=== PATIENT | female | born 1980 | race Caucasian/White ===

== ENCOUNTER → 2020-06-24 10:11 | Outpatient (CLI) | payer OTHER, SELFPAY | PROVIDERS: PCP Family Medicine; Visit Provider Family Medicine | DX: Z20.822 Contact with and (suspected) exposure to COVID-19 (principal) | CPT/HCPCS: 87635; U0005; U0002; U0003 ==

== ENCOUNTER → 2020-08-10 11:11 | Outpatient (CLI) | payer OTHER, SELFPAY ==
--- NOTE | 2020-08-10 11:14 | BI_ITS ---
MAMMOGRAPHY - BILATERAL SCREENING REASON FOR EXAM: Female, 40 years old. Routine annual screening examination. PERTINENT HISTORY: Grandmother with breast cancer. TECHNIQUE: Digital bilateral breast tarik (3D mammographic acquisition) in the CC and MLO projections. 2-D mediolateral oblique (MLO) and craniocaudad (CC) views of both breasts were obtained. CAD: Full Field Digital Mammography with Computer Added Detection was performed. COMPARISON: Comparison is made with prior abdomen examination dated 10/12/2016. FINDINGS: Breast Composition: The breasts are heterogeneously dense, which may obscure small masses. There are no dominant masses or suspicious calcifications. Stable benign appearing lateral axillary lymph nodes. No other significant abnormalities are identified. There has been no significant change since the prior study. BI/SCRN MAMM (CAD)W/TARIK BILAT IMPRESSION: Stable bilateral screening mammogram. Yearly follow-up mammogram recommended. (A) ASSESSMENT CATEGORY: BIRADS Category 2: Benign. A letter regarding these results will be sent to the patient by the facility within 30 days. Approximately 10% of breast cancers are not detected by mammography. A normal mammogram should not delay biopsy of a clinically suspicious abnormality. [id number] Electronically Signed: Lawrence Goetz MD at 15:51 EST , Service support ,
== END ==
PROVIDERS: PCP Family Medicine; Referring Provider Family Medicine; Visit Provider Family Medicine
DX: Z12.31 Encounter for screening mammogram for malignant neoplasm of breast (principal)
CPT/HCPCS: 77063; 77067

== ENCOUNTER → 2020-11-22 14:46 | Outpatient (CLI) | payer OTHER, SELFPAY ==
--- NOTE | 2020-11-22 14:50 | RAD_ITS ---
STUDY: X-RAY - LUMBOSACRAL SPINE REASON FOR EXAM: Female, 40 years old. LUMBAR BACK PAIN,RADICULOPATHY TECHNIQUE: 5 view(s) of the lumbosacral spine were obtained including oblique views. COMPARISON: None FINDINGS: Normal lumbar lordosis. There is a mild dextroscoliosis of the lumbar spine. There is normal alignment of the vertebrae. Normal vertebral bodies and endplates. Normal disc space heights. Normal bilateral sacral ala, sacroiliac joints, and visualized sacrum. Normal visualized soft tissue structures. RAD/L/S Spine Bending Flex/Ext IMPRESSION: Mild degree of dextroscoliosis. Electronically Signed: Lawrence Goetz MD at 15:32 EDT , Service support ,
== END ==
PROVIDERS: PCP Family Medicine; Referring Provider Family Medicine; Visit Provider Family Medicine
DX: M54.16 Radiculopathy, lumbar region (principal)
CPT/HCPCS: 72120

== ENCOUNTER 2021-11-02 | Emergency (ER) | payer OTHER, SELFPAY ==
[2021-11-02 00:01] VITALS: BP 141/86; PULSE 91; RESP 18; TEMP 36.5; O2SAT 99; BMI 30.2
--- NOTE | 2021-11-02 00:13 | CT_ITS ---
STUDY: CTA CHEST REASON FOR EXAM: Female, 41 years old. covid + pulmonary embolism RADIATION DOSAGE (If Supplied By Facility): CTDIvol = ( 11.09 ) mGy, DLP = ( 420.28 ) mGycm TECHNIQUE: The examination was performed with the intravenous administration of IV 75mL Isovue-370. Post-processing of the angiographic images was performed, with multiplanar reformation and 3D reconstruction. Individualized dose optimization techniques were used for this CT. COMPARISON: None. FINDINGS: Normal enhancement of the main pulmonary artery and right and left pulmonary arteries. Normal enhancement of the bilateral peripheral pulmonary arteries. There is no demonstrated pulmonary embolism. Normal thoracic aorta and visualized great vessels. There is no demonstrated aortic dissection. Normal heart and pericardium. Normal mediastinum. Normal hilar regions. Normal visualized trachea and bronchi. The lungs are well expanded. Normal pulmonary parenchyma. Normal pleura. Normal chest wall structures. Normal osseous structures. Normal visualized upper abdomen. CT/CTA Chest W/WO Contrast IMPRESSION: Normal CTA chest examination, without a demonstrated pulmonary embolism or arterial dissection. Electronically Signed: Agustín Rangel MD at 2:00 EDT ,
--- NOTE | 2021-11-02 00:13 | EKG12_ITS ---
Test Reason : CP Blood Pressure : / mmHG Vent. Rate : 076 BPM Atrial Rate : 076 BPM P-R Int : 148 ms QRS Dur : 092 ms QT Int : 380 ms P-R-T Axes : 058 020 033 degrees QTc Int : 427 ms Normal sinus rhythm Normal ECG Confirmed by YESSY LOCKWOOD, HUGO ([id number]), assistant film editor JOB CASTANEDA ([id number]) on 11/04/2021 10:46:32 A M Referred By: Confirmed By:MINOO KRISHNAMURTHY MD
--- NOTE | 2021-11-02 00:14 | EDS_ITS ---
HPI History of Present Illness Chief Complaint: Chest Pain Informant: patient Narrative Narrative: 41-year-old female presenting to the emergency department for the evaluation of chest pain. Patient states that she is COVID-positive. She has not really felt short of breath but has been having some discomfort in the epigastrium. Is significantly worse tonight. She has been taking Nexium and took Pepcid today. She tried some Pepto-Bismol. Did not necessarily get worse with eating. She states that she thought perhaps some costochondritis so she took some ibuprofen. But she notes that the chest wall was not tender. No significant coughing. Temperatures have been low-grade. She has been able to stay hydrated no vomiting or diarrhea. [facility] Medical History Anxiety GERD (gastroesophageal reflux disease) Home Medications MAGIC MOUTH WASH (BMX) 5 ml PO Q4H PRN PRN #180 ml 11/02/21 [Rx Last Taken Unknown] Allergy/AdvReac Type Severity Reaction Status Date / Time No Known Allergies Allergy Verified 11/02/21 00:09 Social History (Updated 11/02/21 @ 00:[address] Ben Lopes DO) Smoking Status: Never smoker substance use type: does not use ROS ROS ED Constitutional Constitutional ED: Reports fever(s); Denies chills or weight loss Eyes Eyes: Denies change in vision or diplopia ENT ENT ED: Denies ear pain, rhinorrhea or sore throat Cardiovascular Cardiovascular: Reports chest pain; Denies orthopnea, palpitations or racing heartbeat Respiratory/Chest Respiratory/Chest: Denies cough, dyspnea or orthopnea Gastrointestinal Gastrointestinal: Denies abdominal pain, diarrhea, nausea or vomiting Genitourinary Genitourinary ED: Denies dysuria, hematuria or urinary frequency Musculoskeletal Musculoskeletal: Reports back pain and myalgias; Denies arthralgias Integumentary Denies abscess or rash Neurologic Neurologic: Denies headache(s) or weakness Psychiatric Psychiatric: Denies anxiety, depression, suicidal ideation or suicidal thoughts Endocrine Endocrinology: Denies polydipsia, polyphagia or polyuria Allergic/Immunologic Allergic/Immunologic ED: Denies mouth swelling, tongue swelling or urticaria EXAM Physical Exam Const Vital Signs: 11/02/21 00:01 11/02/21 00:08 11/02/21 00:58 Temperature 97.7 F L Temperature Source Oral Pulse Rate 91 97 Respiratory Rate 18 12 Respiratory Effort Normal Non-Labored Respiratory Pattern Normal Blood Pressure 141/86 H 122/73 H Blood Pressure Mean 104 89 Pulse Ox 99 99 Oxygen Delivery Method Room Air Room Air Positive well nourished and well developed General Appearance ED: well developed HEENT Reports normocephalic, head/scalp atraumatic, TM's clear and moist mucous membranes Negative for trauma Tympanic Membrane ED: Yes TM's clear Eyes PERRL and EOMs intact bilaterally Neck no lymphadenopathy, supple and no JVD Resp normal respiratory effort and clear to auscultation bilaterally Cardio regular rate and no murmurs Rate: tachycardic GI normal to inspection, nondistended, normoactive bowel sounds and non-tender Palpation: soft Back/Spine no CVA tenderness and normal ROM Extremity normal to inspection General Extremety ED: Negative for edema General Extremity: Negative for edema Neuro oriented x3 and CN's II-XII intact bilaterally Sensorium / Orientation: alert Motor Exam: strength 5/5 throughout Psych mental status grossly normal Mood & Affect: Negative for depressed or tearful Skin no rashes or lesions noted and no wounds MDM MDM MDM Narrative Medical decision making narrative: EKG is a normal sinus rhythm troponin is normal. CTA of the chest demonstrates no pneumonia or pulmonary embolism. Patient did get some partial relief of her symptoms with a GI cocktail. I think at this point it is most likely GI related. Patient is comfortable being discharged. Continue her antacids and I will write for Magic mouthwash. Lab Data Attestation: I reviewed the patient's lab results. Labs: Laboratory Results - last 24 hr 11/02/21 11/02/21 00:10 00:10 WBC 10.9 RBC 4.49 Hgb 12.9 Hct 40.2 MCV 89.5 MCH 28.7 MCHC 32.1 RDW Std Deviation 42.0 RDW Coeff of Casey 12.8 Plt Count 332 MPV 9.9 Immature Gran % (Auto) 0.400 Neut % (Auto) 65.8 Lymph % (Auto) 21.0 [place] % (Auto) 10.9 H Eos % (Auto) 1.5 Baso % (Auto) 0.4 Absolute Neuts (auto) 7.2 Absolute Lymphs (auto) 2.29 Nucleated RBC % 0 Sodium 137 Potassium 3.4 L Chloride 100 Carbon Dioxide 30.0 Anion Gap 7 BUN 8 Creatinine 0.82 Estim Creat Clear Calc 79.60 Est GFR (MDRD) Af Amer 97 Est GFR (MDRD) Non-Af 81 BUN/Creatinine Ratio 9.7 L Glucose 127 H Calcium 9.6 Troponin I High Sens < 3 L EKG Initial EKG: Attestation: I personally reviewed and interpreted this EKG as follows: Comments: Normal sinus rhythm with a ventricular rate of 76 bpm Discharge Plan Triage Chief Complaint: Chest Pain ED Provider: Ben Lopes Dx/Rx/DC Orders Clinical Impression: COVID-19, Chest pain Instructions: Coronavirus Disease 2019 (COVID-19): Caring for Yourself or Others Prescriptions: New MAGIC MOUTH WASH (BMX) 180 mL suspension 5 ml PO Q4H PRN PRN (Reason: pain) Qty: 180 RF: 0 Primary Care Provider: Jenny Garcia Referrals: Jenny Garcia DO [Primary Care Provider] - As Needed Disposition Disposition: Home, Self Care
[2021-11-02 00:31] LABS: Absolute Lymphocyte Count 2.29 X10^3/uL (0.83-4.51); Absolute Neutrophil Count 7.2 X10^3/uL (2.0-7.7); Basophil# 0.04 X10^3/uL; Basophil% 0.4 % (0-1); Eosinophil# 0.16 X10^3/uL; Eosinophils% 1.5 % (0-5); Hematocrit 40.2 % (37-47); Hemoglobin 12.9 g/dL (12.0-15.0); Lymphocyte # 2.29 X10^3/ul (0.83-4.51); Mean Corp Hgb Conc 32.1 g/dL (32-36); Mean Corpuscular Hgb 28.7 pg (27.0-32.0); Mean Corpuscular Volume 89.5 fL (81-99); Mean Platelet Vol. 9.9 fl (6.2-12.0); Monocyte# 1.19 X10^3/uL; Monocyte% 10.9 % (0-10); NRBC Flagged by Analyzer 0 % (0-5); Neutrophil # 7.18 X10^3/uL (2.7-7.7); Neutrophil % 65.8 % (47-70); Platelet Count 332 K/mm3 (150-450); RBC Distribution Width CV 12.8 % (11.6-14.6); Red Blood Count 4.49 M/mm3 (4.2-5.4); White Blood Count 10.9 K/mm3 (4.4-11.0)
[2021-11-02] MEDS: Mag Hydrox/Al Hydrox/Simeth 30 ML UDC PO ×2 (00:42→02:41)
[2021-11-02 00:45] LABS: Anion Gap 7 (5-15); BUN 8 mg/dL (7-18); BUN/Creat Ratio 9.7 RATIO (10-20); Calcium,Total 9.6 mg/dL (8.5-10.1); Chloride 100 mmol/L (98-107); Creatinine, Serum 0.82 mg/dL (0.55-1.02); EST Glomerular Filtration Rate 81 mL/min (>60); Est Glom Filt Rate - Afr Amer 97 mL/min (>60); Glucose 127 mg/dL (74-106); Potassium 3.4 mmol/L (3.5-5.1); Sodium Level 137 mmol/L (136-145); Troponin-I HS < 3 pg/mL (3.0-54.0)
[2021-11-02 00:58] VITALS: BP 122/73; PULSE 97; RESP 12; O2SAT 99
== END 2021-11-02 02:49 | disposition home or self-care (01) ==
PROVIDERS: Emergency Provider Emergency Medicine; PCP Family Medicine; Visit Provider Emergency Medicine
DX: U07.1 COVID-19 (principal)
CPT/HCPCS: 71275; 80048; 84484; 85025; 93005; 99284

== ENCOUNTER → 2021-11-29 | Outpatient (CLI) | payer OTHER, SELFPAY ==
--- NOTE | 2021-11-29 16:18 | BI_ITS ---
MAMMOGRAPHY - BILATERAL SCREENING REASON FOR EXAM: Female, 41 years old. Routine annual screening examination. PERTINENT HISTORY: Grandmother with breast cancer. TECHNIQUE: Digital bilateral breast tarik (3D mammographic acquisition) in the CC and MLO projections. 2-D mediolateral oblique (MLO) and craniocaudad (CC) views of both breasts were obtained. CAD: Full Field Digital Mammography with Computer Added Detection was performed. COMPARISON: Comparison is made with prior study dated 08/10/2020. FINDINGS: Breast Composition: The breasts are heterogeneously dense, which may obscure small masses. There are no dominant masses or suspicious calcifications. No other significant abnormalities are identified. There has been no significant change since the prior study. BI/SCRN MAMM (CAD)W/TARIK BILAT IMPRESSION: Stable bilateral screening mammogram. Yearly follow-up mammogram recommended. (A) ASSESSMENT CATEGORY: BIRADS Category 1: Negative. A letter regarding these results will be sent to the patient by the facility within 30 days. Approximately 10% of breast cancers are not detected by mammography. A normal mammogram should not delay biopsy of a clinically suspicious abnormality. [id number] Electronically Signed: Lawrence Goetz MD at 8:09 EDT ,
== END | disposition home or self-care (01) ==
LOC: OPBI 16:16
PROVIDERS: PCP Family Medicine; Referring Provider Family Medicine; Visit Provider Family Medicine
DX: Z12.31 Encounter for screening mammogram for malignant neoplasm of breast (principal)
CPT/HCPCS: 77063; 77067

== ENCOUNTER 2022-03-07 02:46 | Observation (INO) | payer OTHER, SELFPAY ==
[2022-03-07] VITALS (13 sets, daily range): BP systolic 92–145; BP diastolic 53–94; PULSE 59–80; RESP 15–16; TEMP 36.4–37.1; O2SAT 88–98; BMI 30.3; BMI 30.2
--- NOTE | 2022-03-07 02:59 | EDS_ITS ---
HPI <Dr. Socrates Govea MD - Last Filed: 03/07/22 23:02> HPI - GI History of Present Illness Chief Complaint: Abd Pain Informant: patient Narrative Narrative: Patient presents with epigastric pain. She states she just was not feeling well earlier today. She called off work which is very abnormal. She then started to have some epigastric pain at approximately 5 PM. Somewhat burning. Not having chest pain or dyspnea. She has had some nausea but she thinks that is more likely due to to the pain itself. She has had a history of some gastritis. She is on Nexium once a day and is still taking it. She has tried Pepto-Bismol and Magic mouthwash. And is just not helping her symptoms. The pain is epigastric and not right or left upper quadrant. Its not lower abdomen. It does not go through to the back. She has never had biliary disease but does have a family history of biliary problems. She rarely has alcohol. Nothing seems to have helped this. No fever. Patient did have prior hysterectomy but no cholecystectomy. PFSH <Dr. Socrates Govea MD - Last Filed: 03/07/22 23:02> [facility] Medical History (Updated 03/07/22 @ 09:43 by Noni De Leon) Anxiety Factor 5 Leiden mutation, heterozygous GERD (gastroesophageal reflux disease) Home Medications MAGIC MOUTH WASH (BMX) 180 mL suspension 5 ml PO Q4H PRN PRN pain #180 mL 11/02/21 [Rx Last Taken Unknown] cyclobenzaprine 10 mg tablet 10 mg PO TID PRN Spasms 03/07/22 [History Last Taken Unknown] esomeprazole magnesium 40 mg capsule,delayed release (Nexium) 40 mg PO DAILY 03/07/22 [History Last Taken 03/06/22] fluoxetine 40 mg capsule (Prozac) 40 mg PO DAILY 03/07/22 [History Last Taken 0 03/06/22] Allergy/AdvReac Type Severity Reaction Status Date / Time No Known Allergies Allergy Verified 03/07/22 02:52 Surgical History (Updated 03/07/22 @ 09:48 by Noni De Leon) History of hysterectomy Social History Smoking Status: Never smoker substance use type: does not use ROS <Dr. Socrates Govea MD - Last Filed: 03/07/22 23:02> ROS ED Constitutional Constitutional ED: Denies fever(s) ENT ENT ED: Reports other Details: Acid taste in throat from episodes of vomiting. Cardiovascular Cardiovascular: Denies chest pain or palpitations Respiratory/Chest Respiratory/Chest: Denies cough or dyspnea Gastrointestinal Gastrointestinal: Reports abdominal pain, nausea and vomiting Musculoskeletal Musculoskeletal: Denies back pain Integumentary Denies rash Endocrine Endocrinology: Reports other Details: No diabetic history. Hematologic/Lymphatic Hematologic/Lymphatic: Denies easy bleeding or easy bruising Allergic/Immunologic Allergic/Immunologic ED: Denies urticaria EXAM <Dr. Socrates Govea MD - Last Filed: 03/07/22 23:02> Physical Exam Const Vital Signs: 03/07/22 02:47 03/07/22 07:58 Temperature 98.2 F 97.9 F Temperature Source Temporal Temporal Pulse Rate 80 73 Respiratory Rate 16 16 Blood Pressure 145/94 H 117/76 Blood Pressure Mean 111 89 Pulse Ox 98 96 Oxygen Delivery Method Room Air Room Air Positive well nourished and well developed General Appearance ED: well developed HEENT atraumatic Eyes General Eye ED: Negative for scleral icterus Neck no JVD Resp normal respiratory effort and clear to auscultation bilaterally Resp Narrative: No pain with deep breath. Auscultation: Negative for rales, rhonchi or wheezes Cardio regular rate, regular rhythm and no murmurs GI non-distended GI Narrative: Abdomen is soft. Bowel sounds are normal. She has epigastric tenderness is very reproducible. But if she really does not have any left or right upper quadrant tenderness. No lower abdominal tenderness. Palpation: soft and tender Back/Spine no CVA tenderness Extremity Extremity Narrative: No asymmetry. General Extremety ED: Negative for edema or tenderness General Extremity: Negative for edema Neuro Sensorium / Orientation: alert Psych mental status grossly normal Skin General Skin Exam: Negative for jaundice <Dr. Carline Delaney DO - Last Filed: 03/07/22 08:07> Physical Exam Const Vital Signs: 03/07/22 02:47 03/07/22 07:58 Temperature 98.2 F 97.9 F Temperature Source Temporal Temporal Pulse Rate 80 73 Respiratory Rate 16 16 Blood Pressure 145/94 H 117/76 Blood Pressure Mean 111 89 Pulse Ox 98 96 Oxygen Delivery Method Room Air Room Air MDM <Dr. Socrates Govea MD - Last Filed: 03/07/22 23:02> [facility] MDM Narrative Medical decision making narrative: Patient was rechecked. She is still having symptoms but it is improving. We discussed adding Carafate which we will try here. Her electrolytes, liver function test, lipase are all relatively normal. Glucose has mild elevation at 125. Her CBC shows normal hemoglobin and platelet. But her white count is quite high at 18.7. This add some concern. This certainly could be due to pain and demargination but infectious etiology, perforation etc. are also a concern. Since she is having a marked increase in her epigastric pain despite taking medicines for gastritis and has a high white count we will look further with a CT scan. Patient will be rechecked again. Patient CT showed some possible gallbladder wall thickening. Patient was rechecked. She is starting to feel little bit worse again. We will give her so me morphine and Phenergan to help because the nausea is worsened also. With her symptoms, worsening and elevated white count I think we need to look further. I cannot get ultrasound now but they will be in the morning. We will try to keep her comfortable until that time to get further studies. Ultrasound showed 2 quite large gallstones but no significant signs of acute cholecystitis. I am wondering if she is having a ball-valve type occurrence with the stones. Patient does look genuinely uncomfortable. I did discuss the case with surgery, Dr. Mendoza who is down seeing the patient now. Lab Data Attestation: I reviewed the patient's lab results. Labs: Laboratory Results - last 24 hr 03/07/22 03/07/22 02:52 02:52 WBC 18.7 H RBC 4.47 Hgb 12.7 Hct 40.1 MCV 89.7 MCH 28.4 MCHC 31.7 L RDW Std Deviation 41.9 RDW Coeff of Casey 12.7 Plt Count 418 MPV 9.8 Immature Gran % (Auto) 0.500 Neut % (Auto) 75.7 H Lymph % (Auto) 16.2 L [place] % (Auto) 6.3 Eos % (Auto) 1.0 Baso % (Auto) 0.3 Absolute Neuts (auto) 14.2 H Absolute Lymphs (auto) 3.03 Nucleated RBC % 0 Sodium 137 Potassium 3.8 Chloride 103 Carbon Dioxide 27.0 Anion Gap 7 BUN 12 Creatinine 0.92 Estim Creat Clear Calc 70.95 Est GFR (MDRD) Af Amer 86 Est GFR (MDRD) Non-Af 71 BUN/Creatinine Ratio 13.1 Glucose 125 H Calcium 9.1 Total Bilirubin 0.20 AST 23 ALT 22 Alkaline Phosphatase 64 Troponin I High Sens 4 Total Protein 7.6 Albumin 3.8 Globulin 3.8 Albumin/Globulin Ratio 1.0 Lipase 297 Radiography Diagnostic Testing: Clinical Impression(s) from Imaging Studies Abdomen/Pelvis CT 03/07/22 03:45 IMPRESSION: undefined Gallbladder Ultrasound 03/07/22 04:50 IMPRESSION: undefined EKG Initial EKG: Comments: EKG done for epigastric pain read by me shows normal sinus rhythm with overall rate of 69. No ectopy noted. No acute ST elevation or depression. No preexcitation. IL interval, QRS duration and QTc are normal. These indices as well as the overall appearance of the EKG is similar to 02 Nov 2021. <Dr. Carline Delaney, DO - Last Filed: 03/07/22 08:07> [facility] Narrative Medical decision making narrative: Patient was rechecked. She is still having symptoms but it is improving. We d iscussed adding Carafate which we will try here. Her electrolytes, liver function test, lipase are all relatively normal. Glucose has mild elevation at 125. Her CBC shows normal hemoglobin and platelet. But her white count is quite high at 18.7. This add some concern. This certainly could be due to pain and demargination but infectious etiology, perforation etc. are also a concern. Since she is having a marked increase in her epigastric pain despite taking medicines for gastritis and has a high white count we will look further with a CT scan. Patient will be rechecked again. Patient CT showed some possible gallbladder wall thickening. Patient was rechecked. She is starting to feel little bit worse again. We will give her some morphine and Phenergan to help because the nausea is worsened also. With her symptoms, worsening and elevated white count I think we need to look further. I cannot get ultrasound now but they will be in the morning. We will try to keep her comfortable until that time to get further studies. Lab Data Labs: Laboratory Results - last 24 hr 03/07/22 03/07/22 02:52 02:52 WBC 18.7 H RBC 4.47 Hgb 12.7 Hct 40.1 MCV 89.7 MCH 28.4 MCHC 31.7 L RDW Std Deviation 41.9 RDW Coeff of Casey 12.7 Plt Count 418 MPV 9.8 Immature Gran % (Auto) 0.500 Neut % (Auto) 75.7 H Lymph % (Auto) 16.2 L [place] % (Auto) 6.3 Eos % (Auto) 1.0 Baso % (Auto) 0.3 Absolute Neuts (auto) 14.2 H Absolute Lymphs (auto) 3.03 Nucleated RBC % 0 Sodium 137 Potassium 3.8 Chloride 103 Carbon Dioxide 27.0 Anion Gap 7 BUN 12 Creatinine 0.92 Estim Creat Clear Calc 70.95 Est GFR (MDRD) Af Amer 86 Est GFR (MDRD) Non-Af 71 BUN/Creatinine Ratio 13.1 Glucose 125 H Calcium 9.1 Total Bilirubin 0.20 AST 23 ALT 22 Alkaline Phosphatase 64 Troponin I High Sens 4 Total Protein 7.6 Albumin 3.8 Globulin 3.8 Albumin/Globulin Ratio 1.0 Lipase 297 Radiography Diagnostic Testing: Clinical Impression(s) from Imaging Studies Abdomen/Pelvis CT 03/07/22 03:45 IMPRESSION: undefined Gallbladder Ultrasound 03/07/22 04:50 IMPRESSION: undefined Treatment and Re-Evaluation Narrative: Patient signed out to me pending surgical evaluation. Patient is admitted to surgical service for further definitive management. Discharge Plan Dx/Rx/DC Orders Clinical Impression: Symptomatic cholelithiasis, Leukocytosis Disposition Disposition: Acute Care [facility]
[2022-03-07 03:11] LABS: Absolute Lymphocyte Count 3.03 X10^3/uL (0.83-4.51); Absolute Neutrophil Count 14.2 X10^3/uL (2.0-7.7); Basophil# 0.06 X10^3/uL; Basophil% 0.3 % (0-1); Eosinophil# 0.18 X10^3/uL; Hematocrit 40.1 % (37-47); Hemoglobin 12.7 g/dL (12.0-15.0); Lymphocyte # 3.03 X10^3/ul (0.83-4.51); Lymphocyte % 16.2 % (19-41); Mean Corp Hgb Conc 31.7 g/dL (32-36); Mean Corpuscular Hgb 28.4 pg (27.0-32.0); Mean Corpuscular Volume 89.7 fL (81-99); Mean Platelet Vol. 9.8 fl (6.2-12.0); Monocyte# 1.18 X10^3/uL; Monocyte% 6.3 % (0-10); NRBC Flagged by Analyzer 0 % (0-5); Neutrophil # 14.18 X10^3/uL (2.7-7.7); Neutrophil % 75.7 % (47-70); Platelet Count 418 K/mm3 (150-450); RBC Distribution Width CV 12.7 % (11.6-14.6); RBC Distribution Width SD 41.9 fl (35.1-43.9); Red Blood Count 4.47 M/mm3 (4.2-5.4); White Blood Count 18.7 K/mm3 (4.4-11.0)
[2022-03-07] MEDS: Ondansetron 4 MG/2 ML Vial IV (03:11)
[2022-03-07] MEDS: Mag Hydrox/Al Hydrox/Simeth 30 ML UDC PO (03:11)
[2022-03-07 03:30] LABS: AST(SGOT) 23 U/L (15-37); Alanine Aminotransfer ALT/SGPT 22 U/L (13-56); Albumin, Serum 3.8 g/dL (3.2-5.0); Alkaline Phosphatase 64 U/L (45-117); Anion Gap 7 (5-15); BUN 12 mg/dL (7-18); BUN/Creat Ratio 13.1 RATIO (10-20); Calcium,Total 9.1 mg/dL (8.5-10.1); Chloride 103 mmol/L (98-107); Creatinine, Serum 0.92 mg/dL (0.55-1.02); EST Glomerular Filtration Rate 71 mL/min (>60); Est Glom Filt Rate - Afr Amer 86 mL/min (>60); Estimated Creatinine Clearance 70.95 ml/min; Globulin 3.8 g/dL (2.2-4.2); Glucose 125 mg/dL (74-106); Lipase 297 U/L (73-393); Potassium 3.8 mmol/L (3.5-5.1); Protein, Total 7.6 g/dL (6.4-8.2); Sodium Level 137 mmol/L (136-145); Troponin-I HS 4 pg/mL (3.0-54.0)
--- NOTE | 2022-03-07 03:45 | CT_ITS ---
EXAM: CT abdomen and pelvis with contrast. HISTORY: pain, primarily epigastric TECHNIQUE: CT Abdomen And Pelvis W/ Contrast Injection. A radiation dose optimization technique was used for this scan. COMPARISON: None. LIMITATIONS: None. LOWER CHEST: Normal. LIVER: Normal. GALLBLADDER: Possible mild wall thickening. No pericholecystic inflammatory change. BILE DUCTS: Normal. PANCREAS: Normal. SPLEEN: Normal. ADRENAL GLANDS: Normal. KIDNEYS/URETERS/BLADDER: Normal. AORTA: Normal caliber. BOWEL/MESENTERY: Normal. APPENDIX: Normal. PERITONEUM: Trace free pelvic fluid. REPRODUCTIVE ORGANS: Hysterectomy. 1.5 cm irregular follicle or partially collapsed cyst in the left ovary. BONES/SOFT TISSUES: No acute fracture. OTHER: None. CONCLUSION: Possible mild wall thickening of the gallbladder. If acute cholecystitis is a clinical concern, ultrasound is recommended. Electronically Signed: Rosendo Casanova MD at 4:41 EDT , CT/Abdomen/Pelvis W IV Cont ONLY IMPRESSION: undefined
[2022-03-07] MEDS: Sucralfate 1 GM Tablet PO (04:12)
--- NOTE | 2022-03-07 04:50 | US_ITS ---
EXAM: Ultrasound abdomen, RUQ. HISTORY: PAIN -- EPIGASTRIC PAIN X 1 DAY COMPARISON: None. LIMITATIONS: None. LIVER: Normal. GALLBLADDER Size: Normal. Stones/sludge: Two gallstones. The largest measures 2.4 cm. Wall thickness: Normal measuring 2 to 3 mm. Pericholecystic fluid: None. Sonographic [place] sign: Negative. EXTRAHEPATIC BILE DUCTS: The partially visualized common duct is normal in caliber measuring 4 mm. PANCREAS: Not well visualized. RIGHT KIDNEY: Normal. OTHER: None. CONCLUSION: Gallstones. No definitive evidence of acute cholecystitis. Electronically Signed: Rosendo Casanova MD at 7:06 EDT , US/Gallbladder IMPRESSION: undefined
[2022-03-07] MEDS: Morphine 4 MG/ML Syringe IV (05:10)
[2022-03-07] MEDS: proMETHazine 25 MG/ML Syringe 12.5 MG IM (05:11)
--- NOTE | 2022-03-07 08:10 | NURSING ---
MED SURG OBS RICHARD SYMPTOMATIC CHOLELITHIASIS
--- NOTE | 2022-03-07 09:19 | HP.PCM_ITS ---
[facility] - General General Date of Admission: 03/07/22 Date of Service: 03/07/22 Chief Complaint: Acute onset abdominal pain nausea and vomiting [facility] Narrative JAYESH DIAMOND, is a 41 F who presents with complaints of severe upper/epigastric abdominal pain that began yesterday and intensified towards the evening. 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 She attempted to take a number of umpu-tkj-lkubsbh agents including 2 Pepcid's, her prescribed Nexium, and Pepto-Bismol. However her discomfort persisted. With this discomfort she presented to [facility] ER. CT of the abdomen and pelvis was obtained that showed possible wall thickening of the gallbladder. Laboratories remarkable for leukocytosis (18.7) with left shift but normal CMP values. Given the CT findings a reflex right upper quadrant ultrasound was ordered for better characterization of the gallbladder. This study found the gallbladder wall to be of normal thickness, but identified 2 large gallstones?the largest of which measured 2.4 cm in diameter. Patient has a history of this discomfort. She states that in October following a COVID diagnosis she had severe abdominal pain and presented to the ER. At that time she was administered a GI cocktail and started on Nexium. She initially took Nexium twice daily but has been taking it once daily for last several months. She states that she has a history of reflux but this does not normally present as heartburn?more of a retrosternal discomfort. She has known history of a umbilical hernia for which she sought repair, but was told it could not be found. She denies any discomfort at the site today. Only PSH was total abdominal hysterectomy. [facility] Medical History Anxiety GERD (gastroesophageal reflux disease) Home Medications MAGIC MOUTH WASH (BMX) 180 mL suspension 5 ml PO Q4H PRN PRN pain #180 mL 11/02/21 [Rx Last Taken Unknown] esomeprazole magnesium 40 mg capsule,delayed release (Nexium) 40 mg PO DAILY 03/07/22 [History Last Taken Unknown] fluoxetine 40 mg capsule (Prozac) 40 mg PO DAILY 03/07/22 [History Last Taken Unknown] Allergy/AdvReac Type Severity Reaction Status Date / Time No Known Allergies Allergy Verified 03/07/22 02:52 Social History Smoking Status: Never smoker substance use type: does not use ROS Respiratory/Chest Respiratory/Chest: Denies cough Gastrointestinal Gastrointestinal: Reports abdominal pain, dyspepsia, nausea and vomiting Hematologic/Lymphatic Hematologic/Lymphatic: Denies easy bleeding Vital Signs Vital Signs Vital Signs: 03/07/22 02:47 03/07/22 07:58 03/07/22 08:19 Temperature 98.2 F 97.9 F 97.9 F Temperature Source Temporal Temporal Temporal Pulse Rate 80 73 73 Respiratory Rate 16 16 16 Blood Pressure 145/94 H 117/76 117/76 Blood Pressure Mean 111 89 89 Pulse Ox 98 96 96 Oxygen Delivery Method Room Air Room Air Room Air Weight Weight: 182 lb 5.156 oz Body Mass Index (BMI) 30.3 Physical Exam Const alert, oriented x3 and no apparent distress General Appearance: cooperative Resp normal respiratory effort GI GI Narrative: Nondistended, soft, tender to palpation over the epigastrium in the right upper quadrant. While patient technically has a negative Laguna sign she does have more pronounced tenderness with inspiration. Umbilical hernia clearly visible and is soft and nontender with palpation. Fascial defect estimated at approximately 1 cm. Results Lab / Micro Data Result Diagrams: 03/07/22 02:52 03/07/22 02:52 Labs: Laboratory Results - last 24 hr 03/07/22 02:52: WBC 18.7 H, RBC 4.47, Hgb 12.7, Hct 40.1, MCV 89.7, MCH 28.4, MCHC 31.7 L, RDW Std Deviation 41.9, RDW Coeff of Casey 12.7, Plt Count 418, MPV 9.8, Immature Gran % (Auto) 0.500, Neut % (Auto) 75.7 H, Lymph % (Auto) 16.2 L, [place] % (Auto) 6.3, Eos % (Auto) 1.0, Baso % (Auto) 0.3, Absolute Neuts (auto) 14.2 H, Absolute Lymphs (auto) 3.03, Nucleated RBC % 0 03/07/22 02:52: Sodium 137, Potassium 3.8, Chloride 103, Carbon Dioxide 27.0, Anion Gap 7, BUN 12, Creatinine 0.92, Estim Creat Clear Calc 70.95, Est GFR (MDRD) Af Amer 86, Est GFR (MDRD) Non-Af 71, BUN/Creatinine Ratio 13.1, Glucose 125 H, Calcium 9.1, Total Bilirubin 0.20, AST 23, ALT 22, Alkaline Phosphatase 64, Troponin I High Sens 4, Total Protein 7.6, Albumin 3.8, Globulin 3.8, Albumin/Globulin Ratio 1.0, Lipase 297 Radiology Impression Abdomen/Pelvis CT 03/07/22 03:45 IMPRESSION: undefined Gallbladder Ultrasound 03/07/22 04:50 IMPRESSION: undefined Assessment & Plan Assessment/Plan (1) Acute cholecystitis due to biliary calculus: PLAN: This is a 41-year-old female who presents with acute onset abdominal pain as well as nausea and vomiting that were refractory to tejh-ujr-kigxplb antacid agents. Signs and symptoms highly suggestive of acute cholecystitis along with ER work-up findings of leukocytosis and large gallstones on right upper quadrant ultrasound. I Shared with patient that this could be an episode of breakthrough reflux/dyspepsia/possible peptic ulcer disease, however, it is not my experience that patients present with leukocytosis. 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 Therefore, given her overall presentation, exam with persistent right upper quadrant discomfort, and the presence of large gallstones on ultrasound I have recommended proceeding for urgent laparoscopic cholecystectomy with intraoperative cholangiogram. Given patient's interest in a hernia repair, this should be reasonably added to her procedure. The small defect size lends itself to a primary repair which is critical given the possibility for cross-contamination from the gallbladder if mesh were to be required. Neuro: As needed Dilaudid Pulm/CV: I-S, no current issues FEN/GI: Monitor electrolytes, n.p.o. for procedure, plan for laparoscopic cholecystectomy with intraoperative cholangiogram, continue IV Protonix : No current issues Heme/ID: Monitor CBC, initiate Zosyn therapy for biliary coverage Endo: No current issues Proph: Mobilize as tolerated Dispo: Admit to vaughan Charges/Coding Visit Charges Inpatient E&M: 96109 Init Hosp L2
[2022-03-07] MEDS: 0.9% Normal Saline 1,000 ML 100 ML IV (09:53)
--- NOTE | 2022-03-07 12:30 | GALL_PTH ---
PATIENT: JAYESH TODD LOC: PCU U#:[id number] AGE/SX: 41/F ROOM: [facility] RE03/07/[address]: Dr. Rafael Mendoza MD : 1980 BED: 1 DIS: 03/08/2022 SPEC #: [id number] RECD: 03/08/22 08:27 STATUS: CALLIE STRICKLANDMarika #: [id number] ROCAEL: 03/07/22 12:[address]: Rafael Mendoza DEPT: SURGICAL PATHOLOGY RECD BY: Ju Corley ENTERED: 03/08/22 10:18 SP TYPE: ROSARIO FATIMA DR: Dr. Jenny Garcia DO Tissues: Gallbladder, NOS Procedures: Surgery Specimen Level III HEADER OPERATION: Laparoscopic cholecystectomy with IOC PRE-OP DIAGNOSIS: Acute cholecystitis due to biliary calculus TISSUE SUBMITTED: Gallbladder MICROSCOPIC DIAGNOSIS Gallbladder, cholecystectomy: Acute and chronic cholecystitis, cholelithiasis, and focal cholesterolosis. A benign pericystic lymph node. SJ:javier 03/09/2022 MICROSCOPIC DESCRIPTION Slides are reviewed. GROSS DESCRIPTION Received is one container labeled with the patient's name and designated gallbladder. The specimen consists of a gallbladder measuring 5 x 2.8 x 2 cm. The external surface is smooth and glistening. Focally, it is granular, hemorrhagic and contains cautery artifact. The lumen of the gallbladder contains yellow-green mucoid bile and two yellow-green, chalky calculi averaging 2 cm in greatest dimension. The mucosa is bile-stained and without any mass lesions. The gallbladder wall averages 0.2 cm in thickness and is free of mass lesions. Hardwood Floor Installer sections of the gallbladder and the cystic duct at margin of resection are submitted in two cassettes. / AM:javier 03/08/2022 TC:2 CPT: 71109
--- NOTE | 2022-03-07 14:09 | OP.PCM_ITS ---
Report of Operation Date of Procedure: 03/07/22 Pre-Operative Diagnosis: 1. Acute cholecystitis with cholelithiasis 2. Nonincarcerated umbilical hernia Post-Operative Diagnosis: Same Surgery/Procedure Performed:: 1. Laparoscopic cholecystectomy 2. Primary repair of umbilical hernia Surgeon: Rafael Mendoza fishing lure assembler: Fernando Sanchez fishing lure assembler: Alexei Miller Type of Anesthesia: General/Supplemental Anesthesiologist: Que Morgan Specimen's removed: Gallbladder Drains: NA Estimated Blood Loss (mL): 15 Description of Procedure: After proper identification in the preoperative holding area the patient was brought to the operating room where positioned supine on the operating room table. Preoperatively SCDs were placed (antibiotics had been previously administered). General anesthesia was then induced. Patient's abdomen was prepped and draped in usual sterile fashion. A formal timeout was conducted to confirm both patient and the procedure. Procedure was begun with a infraumbilical incision which was extended deeply down to the level of the fascia with a combination of blunt and sharp dissection. Then patient's umbilical hernia/umbilical stalk was encircled with blunt dissection. The overlying umbilical skin was sharply removed from the underlying hernia contents. Then a combination of blunt dissection and electrocautery was used to free the adhesions between the fascial edge and the hernia contents. Once this was circumferentially accomplished, we attempted to place our 12 mm Richardson trocar through the defect, however, the defect was too small to accommodate so the trocar was removed and the defect was sharply enlarged in a longitudinal orientation. Then a finger sweep was performed to ensure there were no underlying adhesions and a 12 mm balloon trocar was inserted. Pneumoperitoneum was established at 15 mmHg. 3 additional trocars were placed in the epigastrium and in the right upper quadrant (3 x 5 mm). Inspection of the peritoneum revealed no inadvertent injury to the viscera below. The gallbladder was visualized with distention and significant inflammation- particularly approaching the gallbladder infundibulum. In fact, this inflammatory process had drawn the second portion of the duodenum up towards the confluence of the cystic and common bile ducts. The gallbladder fundus was then grasped and elevated cephalad. Great care was used to sweep down omental adhesions then further careful dissection allowed us to open the triangle of Calot and the structures of the hepatocystic triangle were delineated. Once dissected, it was clear that the cystic duct was quite short and this resulted in significant tension on the common bile duct. A cholangiogram was briefly contemplated, but in the absence of abnormal LFTs or CBD dilation, we elected to forego this imaging as it would have meant compromising some of the territory available for clip placement and occlusion of the cystic duct. Once the critical view of safety was obtained, the cystic duct was doubly clipped and sharply divided. The same process was used for the cystic artery. The gallbladder was then removed from the gallbladder fossa with the use of electrocautery. Selective electrocautery was used to obtain hemostasis in the gallbladder fossa. The gallbladder was placed in an Endo Catch bag and a suction irrigating aspirator needle was used to evacuate bile from the gallbladder specimen. This was done in anticipation of having to mobilize patient's greater than 2 cm gallstone through the fascial defect, however, extirpation of the specimen still required sharp extension of the fascial defect with Perez scissors. Ultimately the gallbladder was removed from the peritoneum in the Endo Catch bag and was passed off the field for pathologic evaluation. Morison's pouch was irrigated and the effluent was suctioned free of the peritoneum. Hemostasis was again confirmed within the gallbladder fossa. Pneumoperitoneum was evacuated and the fascia of the 12 mm umbilical port/hernia site was closed primarily with #2 Ethibond (x2) in a prhbjz-qw-hcpnn fashion. The wound was then irrigated and the overlying umbilical skin was tacked back down to the fascia using a 4-0 Monocryl suture. A total of 20 mL of 0.25% plain bupivacaine local anesthetic was injected at the port sites for postoperative pain control. The skin of each port site was then closed in subcuticular fashion using 4-0 Monocryl. Steri-Strips and bandages were applied as dressings. Additionally, at the umbilical closure site, a rolled Telfa was placed into the umbilical concavity and a Tegaderm was placed atop this dressing. A hypodermic needle was used to aspirate all air from beneath this Tegaderm creating a vacuum/compressive dressing. Patient tolerated the procedure well without any apparent complications. On emergence from their anesthetic the patient was taken to PACU for ongoing recovery. Complications None Admit VTE Documentation VTE Mechan Device Prophylaxis: SCD's
[2022-03-07] MEDS: Ketorolac 30 MG/ML Syringe IV (14:52)
[2022-03-07] MEDS: 0.9% Normal Saline 1,000 ML 75 ML IV (15:48)
[2022-03-08 03:32] VITALS: BP 95/63; PULSE 68; RESP 16; TEMP 36.7; O2SAT 97
[2022-03-08] MEDS: 0.9% Normal Saline 1,000 ML 75 ML IV (04:17)
[2022-03-08] MEDS: Pantoprazole Sodium 40 MG Tablet PO (04:25)
[2022-03-08] MEDS: Ibuprofen 400 MG Tablet PO (04:28)
[2022-03-08 06:29] LABS: Absolute Lymphocyte Count 2.37 X10^3/uL (0.83-4.51); Basophil# 0.02 X10^3/uL; Basophil% 0.1 % (0-1); Eosinophil# 0.05 X10^3/uL; Eosinophils% 0.4 % (0-5); Hematocrit 33.4 % (37-47); Hemoglobin 10.8 g/dL (12.0-15.0); Lymphocyte # 2.37 X10^3/ul (0.83-4.51); Lymphocyte % 17.6 % (19-41); Mean Corp Hgb Conc 32.3 g/dL (32-36); Mean Corpuscular Hgb 29.1 pg (27.0-32.0); Mean Platelet Vol. 10.1 fl (6.2-12.0); Monocyte# 1.04 X10^3/uL; Monocyte% 7.7 % (0-10); NRBC Flagged by Analyzer 0 % (0-5); Neutrophil # 9.97 X10^3/uL (2.7-7.7); Neutrophil % 73.8 % (47-70); Platelet Count 336 K/mm3 (150-450); RBC Distribution Width CV 12.8 % (11.6-14.6); RBC Distribution Width SD 42.5 fl (35.1-43.9); Red Blood Count 3.71 M/mm3 (4.2-5.4); White Blood Count 13.5 K/mm3 (4.4-11.0)
[2022-03-08 07:10] LABS: AST(SGOT) 43 U/L (15-37); Alanine Aminotransfer ALT/SGPT 51 U/L (13-56); Alkaline Phosphatase 53 U/L (45-117); Anion Gap 9 (5-15); BUN 8 mg/dL (7-18); BUN/Creat Ratio 11.9 RATIO (10-20); Calcium,Total 8.6 mg/dL (8.5-10.1); Chloride 108 mmol/L (98-107); Creatinine, Serum 0.68 mg/dL (0.55-1.02); EST Glomerular Filtration Rate 101 mL/min (>60); Est Glom Filt Rate - Afr Amer 122 mL/min (>60); Estimated Creatinine Clearance 95.99 ml/min; Glucose 103 mg/dL (74-106); Magnesium 2.5 mg/dL (1.6-2.6); Phosphorus 3.2 mg/dL (2.5-4.9); Potassium 3.6 mmol/L (3.5-5.1); Sodium Level 140 mmol/L (136-145)
--- NOTE | 2022-03-08 07:20 | DCINST_ITS ---
Discharge Instructions Diet Discharge Diet: Low fat / Low cholesterol (recommend) Activity Discharge Activity: May Not Drive (May not drive while taking narcotic pain medications) and May Shower (May begin showering 48hours postop. Please avoid baths or submerging surgical incisions before skin is completely healed.) May shower in (days): 2 May resume sexual activity in: 2 weeks Ice area for (Minutes): 20 Lifting Restrictions: Limit lifting to <15lbs for 2 weeks following surgery Dressing / Incision Call your doctor if your incision/area has: Sudden Increased Bleeding, Increased Pain/ Swelling, Increased Redness, Foul Smelling Discharge and Swelling at the incision site Call your doctor if you observe: Fever of 101 or Higher, Inability to urinate, Inability to have a bowel movement and Uncontrolled pain Suture Line Care: Avoid Pulling/Pushing Remove Dressing in: 2 days (Please leave steri strips (medical tape) in place until they fall off spontaneously or are removed at your follow-up appointment) Cleanse incision/area with: Keep Dressing Clean & Dry Additional Dressing/Incision Instructions:: Please leave umbilical dressing intact for 5 days postop Follow Up Care Please Follow Up With: Rafael Mendoza MD When: 1 week postop Test Results: Test results from this visit will be discussed in further detail at your follow- up appointment, if applicable. Discharge Plan Admission Admit Date/Time: 03/07/22 08:03 Primary Reason for Your Visit: Acute cholecystitis Attending Provider: Rafael Mendoza Primary Care Provider: Jenny Garcia Instructions Patient Instructions: After Gallbladder Surgery, Cholecystectomy Dc Discharge Orders/Prescriptions Prescriptions: New oxycodone 5 mg tablet 5 mg PO Q6H PRN (Reason: pain) 5 Days Qty: 14 0RF Continued MAGIC MOUTH WASH (BMX) 180 mL suspension 5 ml PO Q4H PRN PRN (Reason: pain) Qty: 180 0RF Rx Instructions: diphenhydramine 12.5 mg/5 mL oral liquid 60 mL; aluminum-mag hydroxide- simethicone 400 mg-400 mg-40 mg/5 mL oral susp 60 mL; Lidocaine Viscous 2 % mucosal solution 60 mL; Per 180 mL fluoxetine [Prozac] 40 mg Capsule 40 mg PO DAILY esomeprazole magnesium [Nexium] 40 mg Capsule,Delayed Release(Dr/Ec) 40 mg PO DAILY cyclobenzaprine 10 mg tablet 10 mg PO TID PRN (Reason: Spasms) Label Comments: TAKE 1/2 TO 1 (ONE-HALF TO ONE) TABLET BY MOUTH THREE TIMES DAILY NEEDED Referrals / Follow Up: Jenny Garcia DO [Primary Care Provider] - Disposition Disposition (needs filled in before D/C Order can be placed): Home, Self Care
[2022-03-08 07:25] VITALS: O2SAT 96
[2022-03-08 07:32] VITALS: BP 109/72; PULSE 68; RESP 16; TEMP 36.8; O2SAT 98
--- NOTE | 2022-03-08 07:33 | DS.PCM_ITS ---
Providers Date of Admission: 03/07/22 Primary Care Physician: Dr. Jenny Garcia DO Reason For Visit: ACUTE CHOLECYSITITS Diagnosis Discharge Diagnosis (1) Acute cholecystitis due to biliary calculus: Status: Acute Code(s): K80.00 - Calculus of gallbladder with acute cholecystitis without obstruction Plan: This is a 41-year-old female who presents with acute onset abdominal pain as well as nausea and vomiting that were refractory to wybo-oyc-dpyuddc antacid agents. Signs and symptoms highly suggestive of acute cholecystitis along with ER work-up findings of leukocytosis and large gallstones on right upper quadrant ultrasound. I Shared with patient that this could be an episode of breakthrough reflux/dyspepsia/possible peptic ulcer disease, however, it is not my experience that patients present with leukocytosis. 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 Therefore, given her overall presentation, exam with persistent right upper quadrant discomfort, and the presence of large gallstones on ultrasound I have recommended proceeding for urgent laparoscopic cholecystectomy with intraoperative cholangiogram. Given patient's interest in a hernia repair, this should be reasonably added to her procedure. The small defect size lends itself to a primary repair which is critical given the possibility for cross-contamination from the gallbladder if mesh were to be required. Neuro: As needed Dilaudid Pulm/CV: I-S, no current issues FEN/GI: Monitor electrolytes, n.p.o. for procedure, plan for laparoscopic cholecystectomy with intraoperative cholangiogram, continue IV Protonix : No current issues Heme/ID: Monitor CBC, initiate Zosyn therapy for biliary coverage Endo: No current issues Proph: Mobilize as tolerated Dispo: Admit to vaughan Medications at Discharge Home Medications MAGIC MOUTH WASH (BMX) 180 mL suspension 5 ml PO Q4H PRN PRN pain #180 mL 11/02/21 cyclobenzaprine 10 mg tablet 10 mg PO TID PRN Spasms 03/07/22 esomeprazole magnesium 40 mg capsule,delayed release (Nexium) 40 mg PO DAILY 03/07/22 fluoxetine 40 mg capsule (Prozac) 40 mg PO DAILY 03/07/22 oxycodone 5 mg tablet 5 mg PO Q6H PRN pain 5 days #14 tabs 03/08/22 Hospital Course Operations cholecystecomy Procedures None Summary of Care Provided Hospital Course: Patient presented to [facility] ER on 03/07/2022 with complaints of severe epigastric pain and associated nausea/vomiting. ER work-up was no table for significant leukocytosis of almost 19,000. CT imaging suggested gallbladder wall thickening, but reflex ultrasound showed wall to be a normal yet there was cholelithiasis with gallstones greater than 2 cm in dimension. On exam, patient had significant right upper quadrant and epigastric tenderness that was worse with deep inspiration. Based on patient's laboratories, imaging, and exam findings, I diagnosed her with cholecystitis and recommended urgent laparoscopic cholecystectomy. Patient also had a umbilical hernia on her CT imaging that was not currently causing any symptoms, but something that she wished to have addressed, if possible, at the same time as her gallbladder. T herefore, patient was consented for primary umbilical hernia repair along with her laparoscopic cholecystectomy. This was completed in uncomplicated fashion the same day and the patient was admitted to the floor for ongoing monitoring. Postoperative day 1, patient's laboratories were drawn, off antibiotics, and demonstrated improvement in her leukocytosis. More importantly, patient confirmed that she no longer had the pain with which she presented. She was advanced to a regular diet and oral pain medication without issue. With these clinical improvements, she was granted discharge to home and instructed to follow-up in approximately 1 week with my outpatient office. Physical Exam Const alert, oriented x3 and no apparent distress General Appearance: cooperative Resp normal respiratory effort GI GI Narrative: Nondistended, operative dressings intact?umbilical dressing with a small amount of serosanguineous strikethrough drainage?otherwise unremarkable. Expected tenderness to palpation immediately around port sites. Otherwise no tenderness with palpation and abdomen is soft. Weight / BMI Weight Weight: 181 lb 10.574 oz Body Mass Index (BMI) 30.2 ABG / Lab / Microbiology Data Result Diagrams: 03/08/22 05:50 03/08/22 05:50 Laboratory: Laboratory Results - last 24 hr 03/08/22 05:50: WBC 13.5 H, RBC 3.71 L, Hgb 10.8 L, Hct 33.4 L, MCV 90.0, MCH 29.1, MCHC 32.3, RDW Std Deviation 42.5, RDW Coeff of Casey 12.8, Plt Count 336, MPV 10.1, Immature Gran % (Auto) 0.400, Neut % (Auto) 73.8 H, Lymph % (Auto) 17.6 L, [place] % (Auto) 7.7, Eos % (Auto) 0.4, Baso % (Auto) 0.1, Absolute Neuts (auto) 10.0 H, Absolute Lymphs (auto) 2.37, Nucleated RBC % 0 03/08/22 05:50: Sodium 140, Potassium 3.6, Chloride 108 H, Carbon Dioxide 23.0, Anion Gap 9, BUN 8, Creatinine 0.68, Estim Creat Clear Calc 95.99, Est GFR (MDRD) Af Amer 122, Est GFR (MDRD) Non-Af 101, BUN/Creatinine Ratio 11.9, Glucose 103, Calcium 8.6, Phosphorus 3.2, Magnesium 2.5, Total Bilirubin 0.30, AST 43 H, ALT 51, Alkaline Phosphatase 53, Total Protein 6.0 L, Albumin 3.0 L, Globulin 3.0, Albumin/Globulin Ratio 1.0 D/C Instructions Discharge Diet: Low fat / Low cholesterol (recommend) May shower in (days): 2 May resume sexual activity in: 2 weeks Ice area for (Minutes): 20 Call your doctor if your incision/area has: Sudden Increased Bleeding, Increased Pain/ Swelling, Increased Redness, Foul Smelling Discharge and Swelling at the incision site Call your doctor if you observe: Fever of 101 or Higher, Inability to urinate, Inability to have a bowel movement and Uncontrolled pain Suture Line Care: Avoid Pulling/Pushing Cleanse incision/area with: Keep Dressing Clean & Dry Additional Dressing/Incision Instructions: Please leave umbilical dressing intact for 5 days postop Please Follow Up With: Rafael Mendoza MD When: 1 week postop Meaningful Use Info Meaningful Use Diagnoses (Choose all that apply): None applicable Discharge Plan Admission Admit Date/Time: 03/07/22 08:03 Primary Reason for Your Visit: Acute cholecystitis Attending Provider: Rafael Mendoza Primary Care Provider: Jenny Garcia Instructions Patient Instructions: After Gallbladder Surgery, Cholecystectomy Dc Discharge Orders/Prescriptions Prescriptions: New oxycodone 5 mg tablet 5 mg PO Q6H PRN (Reason: pain) 5 Days Qty: 14 0RF Continued MAGIC MOUTH WASH (BMX) 180 mL suspension 5 ml PO Q4H PRN PRN (Reason: pain) Qty: 180 0RF Rx Instructions: diphenhydramine 12.5 mg/5 mL oral liquid 60 mL; aluminum-mag hydroxide- simethicone 400 mg-400 mg-40 mg/5 mL oral susp 60 mL; Lidocaine Viscous 2 % mucosal solution 60 mL; Per 180 mL fluoxetine [Prozac] 40 mg Capsule 40 mg PO DAILY esomeprazole magnesium [Nexium] 40 mg Capsule,Delayed Release(Dr/Ec) 40 mg PO DAILY cyclobenzaprine 10 mg tablet 10 mg PO TID PRN (Reason: Spasms) Label Comments: TAKE 1/2 TO 1 (ONE-HALF TO ONE) TABLET BY MOUTH THREE TIMES DAILY NEEDED Referrals / Follow Up: Jenny Garcia DO [Primary Care Provider] - Disposition Disposition (needs filled in before D/C Order can be placed): Home, Self Care
[2022-03-08] MEDS: Acetaminophen 500 MG Tablet PO (07:45)
--- NOTE | 2022-03-08 09:19 | PHA.DC.MR ---
Pharmacy Service has performed discharge medication reconciliation for this patient. The patient's discharge medication list was reviewed for discrepancies and discrepancies were resolved. Home Medications MAGIC MOUTH WASH (BMX) 180 mL suspension 5 ml PO Q4H PRN PRN pain #180 mL 11/02/21 cyclobenzaprine 10 mg tablet 10 mg PO TID PRN Spasms 03/07/22 esomeprazole magnesium 40 mg capsule,delayed release (Nexium) 40 mg PO DAILY 03/07/22 fluoxetine 40 mg capsule (Prozac) 40 mg PO DAILY 03/07/22 oxycodone 5 mg tablet 5 mg PO Q6H PRN pain 5 days #14 tabs 03/08/22
== END 2022-03-08 07:33 | disposition home or self-care (01) ==
LOC: ED 08:07 → PCU 09:20
PROVIDERS: Physician Assistant; Admitting Provider Surgery; Emergency Provider Emergency Medicine; PCP Family Medicine; Visit Provider Surgery
PROC: (CPT 47610; principal; 2022-03-07 12:10)
DX: K80.00 Calculus of gallbladder with acute cholecystitis without obstruction (principal); D68.51 Activated protein C resistance; K29.70 Gastritis, unspecified, without bleeding; K42.9 Umbilical hernia without obstruction or gangrene; K21.9 Gastro-esophageal reflux disease without esophagitis; F41.9 Anxiety disorder, unspecified; Z79.899 Other long term (current) drug therapy; Z86.16 Personal history of COVID-19
CPT/HCPCS: 47562; 49585; 00790; 36415; 74177; 76705; 80053; 83690; 83735; 84100; 84484; 85025; 88304; 93005; 96361; 96365; 96372; 96375; 99218; 99283; J7030; J7040; J7050; Q9967; A4216; G0378; J2405; J3490

== ENCOUNTER → 2022-04-06 | Outpatient (CLI) | payer OTHER, SELFPAY ==
[2022-04-06 12:18] LABS: Absolute Lymphocyte Count 1.25 X10^3/uL (0.83-4.51); Absolute Neutrophil Count 3.1 X10^3/uL (2.0-7.7); Basophil# 0.05 X10^3/uL; Eosinophil# 0.29 X10^3/uL; Eosinophils% 5.6 % (0-5); Hematocrit 39.2 % (37-47); Hemoglobin 12.4 g/dL (12.0-15.0); Lymphocyte # 1.25 X10^3/ul (0.83-4.51); Lymphocyte % 24.1 % (19-41); Mean Corp Hgb Conc 31.6 g/dL (32-36); Mean Corpuscular Hgb 28.2 pg (27.0-32.0); Mean Corpuscular Volume 89.3 fL (81-99); Mean Platelet Vol. 10.9 fl (6.2-12.0); Monocyte# 0.51 X10^3/uL; Monocyte% 9.8 % (0-10); NRBC Flagged by Analyzer 0 % (0-5); Neutrophil # 3.07 X10^3/uL (2.7-7.7); Neutrophil % 59.3 % (47-70); Platelet Count 319 K/mm3 (150-450); RBC Distribution Width CV 12.9 % (11.6-14.6); RBC Distribution Width SD 42.5 fl (35.1-43.9); Red Blood Count 4.39 M/mm3 (4.2-5.4); White Blood Count 5.2 K/mm3 (4.4-11.0)
[2022-04-06 12:44] LABS: ALB/GLOB Ratio 1.1 RATIO (0.9-2.4); AST(SGOT) 15 U/L (15-37); Alanine Aminotransfer ALT/SGPT 25 U/L (13-56); Albumin, Serum 3.9 g/dL (3.2-5.0); Alkaline Phosphatase 69 U/L (45-117); Anion Gap 7 (5-15); BUN 10 mg/dL (7-18); BUN/Creat Ratio 12.4 RATIO (10-20); Calcium,Total 9.2 mg/dL (8.5-10.1); Chloride 105 mmol/L (98-107); Cholesterol 160 mg/dL (200); Creatinine, Serum 0.81 mg/dL (0.55-1.02); EST Glomerular Filtration Rate 82 mL/min (>60); Est Glom Filt Rate - Afr Amer 99 mL/min (>60); Globulin 3.4 g/dL (2.2-4.2); Glucose 98 mg/dL (74-106); High Density Lipoprotein 41 mg/dL; Potassium 4.1 mmol/L (3.5-5.1); Protein, Total 7.3 g/dL (6.4-8.2); Sodium Level 138 mmol/L (136-145); Triglycerides 122 mg/dL; Very Low Density Lipoprotein 24 mg/dL (5-40)
== END | disposition home or self-care (01) ==
LOC: MTLAB 09:38
PROVIDERS: PCP Family Medicine; Referring Provider Family Medicine; Visit Provider Family Medicine
DX: Z00.00 Encounter for general adult medical examination without abnormal findings (principal); Z51.81 Encounter for therapeutic drug level monitoring
CPT/HCPCS: 36415; 80053; 80061; 85025

== ENCOUNTER → 2022-04-19 | Outpatient (CLI) | payer OTHER, SELFPAY | END | disposition home or self-care (01) | PROVIDERS: PCP Family Medicine; Visit Provider Urology | DX: N39.0 Urinary tract infection, site not specified (principal) | CPT/HCPCS: 87086; 87088 ==

== ENCOUNTER 2023-03-22 14:32 | Outpatient (CLI) | payer OTHER, SELFPAY ==
[2023-03-22 18:31] LABS: Hepatitis B Surface Antibody Reactive; Hepatitis B Surface Antigen Non-Reactive (Nonreactive)
[2023-03-24 12:08] LABS: QNTFERON TB Mitogen Value > 10.00 IU/mL (.); QNTFERON TB Nil Value 0.02 IU/mL (.); QNTFERON TB1+ Ag Value 0.01 IU/mL (.); QNTFERON TB2+ Ag Value 0.02 IU/mL (.); QNTIFERON TB Positive Criteria Negative (Negative)
== END 2023-03-22 23:59 | disposition home or self-care (01) ==
PROVIDERS: PCP Family Medicine
DX: Z02.1 Encounter for pre-employment examination (principal)
CPT/HCPCS: 36415; 86480; 86706; 87340

== ENCOUNTER → 2023-06-21 | Outpatient (CLI) | payer OTHER, SELFPAY ==
--- NOTE | 2023-06-21 12:31 | BI_ITS ---
MAMMOGRAPHY - BILATERAL SCREENING REASON FOR EXAM: Female, 43 years old. Routine annual screening examination. PERTINENT HISTORY: Grandmother with breast cancer. TECHNIQUE: Digital bilateral breast tarik (3D mammographic acquisition) in the CC and MLO projections. 2-D mediolateral oblique (MLO) and craniocaudad (CC) views of both breasts were obtained. CAD: Full Field Digital Mammography with Computer Added Detection was performed. COMPARISON: Comparison is made with prior study dated 08/01/2021 and August 10, 2020. FINDINGS: Breast Composition: The breasts are heterogeneously dense, which may obscure small masses. There are no dominant masses or suspicious calcifications. Stable small benign-appearing bilateral axillary lymph nodes. No other significant abnormalities are identified. There has been no significant change since the prior study. BI/SCRN MAMM (CAD)W/TARIK BILAT IMPRESSION: Stable bilateral screening mammogram. Yearly follow-up mammogram recommended. (A) ASSESSMENT CATEGORY: BIRADS Category 2: Benign. A letter regarding these results will be sent to the patient by the facility within 30 days. Approximately 10% of breast cancers are not detected by mammography. A normal mammogram should not delay biopsy of a clinically suspicious abnormality. [id number] Electronically Signed: Lawrence Goetz MD at 14:18 EST ,
== END | disposition home or self-care (01) ==
LOC: OPBI 12:29
PROVIDERS: PCP Family Medicine; Referring Provider Family Medicine; Visit Provider Family Medicine
DX: Z12.31 Encounter for screening mammogram for malignant neoplasm of breast (principal); Z80.3 Family history of malignant neoplasm of breast
CPT/HCPCS: 77063; 77067

== ENCOUNTER → 2023-10-01 | Outpatient (CLI) | payer OTHER, SELFPAY ==
--- NOTE | 2023-10-01 12:00 | LES_PTH ---
PATIENT: JAYESH TODD [facility][id number] AGE/SX: 43/F ROOM: RE10/01/[address]: Dr. Jenny Garcia DO : 1980 BED: DIS: 10/01/2023 SPEC #: [id number] RECD: 10/01/23 15:47 STATUS: CALLIE REMarika #: [id number] ROCAEL: 10/01/23 12:[address]: Jenny Garcia DEPT: SURGICAL PATHOLOGY RECD BY: Quin Oseguera Tissues: Skin of scalp, NOS Procedures: Special Stain Group I Surgery Specimen Level IV GMS Stain (control) HEADER OPERATION: 3mm punch biopsy PRE-OP DIAGNOSIS: Squamous cell carcinoma vs. basal cell carcinoma TISSUE SUBMITTED: Right parietal scalp MICROSCOPIC DIAGNOSIS Skin lesion of right parietal scalp, biopsy: Fragments of verrucoid keratosis with mild atypia, inflamed. Negative for fungal organisms. See comment. KRISTEN/ 10/03/2023 COMMENT The specimen is fragmented and incisional and or excisional biopsies recommended for definite classification. GMS stain with matched control was used in the evaluation of this case. Case has been reviewed in consultation with Dr. Red who concurs with the above diagnosis. IDC:SHA MICROSCOPIC DESCRIPTION Slides are reviewed. GROSS DESCRIPTION Received is one container labeled with the patient's name and not further designated. The specimen consists of three pieces of duvall brown skin measuring in aggregate 1.0 x 0.3 x 0.1cm. The entire specimen is submitted in one cassette. / 10/02/23 TC:? CPT:57572,63938
== END | disposition home or self-care (01) ==
LOC: LABSPEC 13:38
PROVIDERS: PCP Family Medicine; Visit Provider Family Medicine
DX: L98.9 Disorder of the skin and subcutaneous tissue, unspecified (principal)
CPT/HCPCS: 88305; 88312

== ENCOUNTER → 2024-09-26 | Outpatient (CLI) | payer OTHER, SELFPAY ==
--- NOTE | 2024-09-26 09:57 | BI_ITS ---
EXAM: SCRN MAMM (CAD)W/TARIK BILAT DATE: 09/26/2024 CLINICAL HISTORY: F, Age 44 y/o , SCREENING BREAST CANCER RISK ASSESSMENT: Has not been calculated. TECHNIQUE: Bilateral screening digital breast tomosynthesis with 2D and 3D images. Computer aided detection. COMPARISON: Prior exam(s) dated 06/21/2023 and 11/29/2021. FINDINGS: TISSUE DENSITY: The breast tissue is composed of scattered area of fibroglandular density. Bilateral Breast Mammographic Findings: There is a 7 mm nodular masslike density in the superior outer, middle 3rd aspect of the right breast. Further workup is indicated. A 4 mm nodular masslike density in the superior, middle 3rd aspect of the left breast is noted and requires additional workup. This is best appreciated on the MLO tarik images. BI/SCRN MAMM (CAD)W/TARIK BILAT IMPRESSION: Right Breast: BIRADS 0 Incomplete: Need additional imaging evaluation and/or pr ior mammograms for comparison.. Left Breast: BIRADS 0 Incomplete: Need additional imaging evaluation and/or dorothea or mammograms for comparison.. OVERALL FINAL ASSESSMENT: BIRADS 0 Incomplete: Need additional imaging evaluati on and/or prior mammograms for comparison. RECOMMENDATION: Incomplete: Need additional imaging evaluation and/or prior mammograms for comp arison. Patient should return for LM views of the right and left breasts as well as spot compression CC and spot compression MLO views of the right breast nodular masslike density and a spot compression MLO view of the left breast masslike density. An ultras ound will also most likely be needed. A letter with findings and recommendations will be mailed to the patient. Reading Location: [id number]
== END | disposition home or self-care (01) ==
LOC: OPBI 09:55
PROVIDERS: PCP Family Medicine; Referring Provider Family Medicine; Visit Provider Family Medicine
DX: Z12.31 Encounter for screening mammogram for malignant neoplasm of breast (principal)
CPT/HCPCS: 77063; 77067

== ENCOUNTER → 2024-10-08 | Outpatient (CLI) | payer OTHER, SELFPAY ==
--- NOTE | 2024-10-08 13:53 | BI_ITS ---
EXAM: DIAG MAMM W/CAD, BILAT 10/08/2024 CLINICAL HISTORY: F, Age 44 y/o , NODULAR DENSITY Abnormal screening mammogram. TECHNIQUE: Bilateral Diagnostic digital breast tomosynthesis with 2D and 3D images. Compression spot views were obtained a mediolateral oblique and craniocaudad projections. Computer aided detection. COMPARISON: Prior exam(s) dated September 26, 2024.. FINDINGS: TISSUE DENSITY: The breast tissue is heterogenously dense, which may obscure small masses. Bilateral Breast Mammographic Findings: No significant masses, calcifications or other abnormalities are identified. Further sonographic correlation recommended to the upper lateral aspects of both breasts. BI/DIAG MAMM W/CAD, BILAT IMPRESSION: OVERALL FINAL ASSESSMENT: BIRADS 0 Incomplete: Need additional imaging evaluati on and/or prior mammograms for comparison. Sonographic correlation recommended.. RECOMMENDATION: Sonographic follow-up. A letter with findings and recommendations will be mailed to the patient. Reading Location: [place] [id number]
--- NOTE | 2024-10-08 13:53 | US_ITS ---
PROCEDURE: BREAST LIMITED UNILATERAL 10/08/2024 REASON FOR EXAM: NODULAR DENSITY TECHNIQUE: Targeted right breast ultrasound. COMPARISON: Comparison is made with prior mammogram dated earlier in the day. FINDINGS: Right breast ultrasound was targeted to the upper-outer quadrant of the right breast.. 2 subcentimeter cysts are seen at the 11 o'clock position of the breast at 3 cm from the nipple. The largest cyst measures 5 mm x 5 mm x 3 mm. US/Breast Limited Unilateral IMPRESSION: There are 2, subcentimeter adjacent cysts at the 11 o'clock position of the real ast at 3 cm from the nipple. Routine mammographic follow-up recommended. Follow-up code: Routine Follow-up BI-RADS category 2 Reading [facility]
--- NOTE | 2024-10-08 13:53 | US_ITS ---
PROCEDURE: BREAST LIMITED UNILATERAL 10/08/2024 REASON FOR EXAM: NODULAR DENSITY TECHNIQUE: Targeted left breast ultrasound. COMPARISON: Comparison is made with prior mammogram done earlier in the day. FINDINGS: Left breast ultrasound was targeted to the upper-outer quadrant. The breast tissue appears sonographically normal. No cyst, solid mass, or suspicious shadowing. US/Breast Limited Unilateral IMPRESSION: Impression: Unremarkable sonogram. Birads: BI-RADS 1: NEGATIVE. RECOMMEND ANNUAL MAMMOGRAPHIC SCREENING. Reading Location: [facility]
== END | disposition home or self-care (01) ==
PROVIDERS: PCP Family Medicine; Referring Provider Family Medicine; Visit Provider Family Medicine
DX: N60.01 Solitary cyst of right breast (principal)
CPT/HCPCS: 76642; 77062; 77066; G0279

== ENCOUNTER → 2025-02-19 | Outpatient (CLI) | payer OTHER, SELFPAY ==
--- NOTE | 2025-02-19 12:38 | RAD_ITS ---
PROCEDURE: ANKLE MIN 3 VIEWS 02/19/2025 REASON FOR EXAM: FALL PAIN TECHNIQUE: Procedure Code: RADANK Modality: DX Procedure: ANKLE MIN 3 VIEWS Laterality: Left ankle. COMPARISON: None FINDINGS: Bones: Nondisplaced oblique fracture of the lateral malleolus. Plantar calcaneal spur. Joints: Normal alignment. Mortise appears intact. No effusion. Soft tissues: Lateral soft tissue swelling. Other: RAD/Ankle min 3 Views IMPRESSION: Nondisplaced oblique fracture of the lateral malleolus with overlying soft tiss ue swelling. Plantar calcaneal spur. Reading Location: [id number]
== END | disposition home or self-care (01) ==
LOC: MTRAD 12:36
PROVIDERS: PCP Family Medicine; Referring Provider Family Medicine; Visit Provider Family Medicine
DX: M25.572 Pain in left ankle and joints of left foot (principal)
CPT/HCPCS: 73610

== ENCOUNTER → 2025-05-01 | Outpatient (CLI) | payer OTHER, SELFPAY ==
--- NOTE | 2025-05-01 16:46 | RAD_ITS ---
PROCEDURE: ANKLE MIN 3 VIEWS 05/01/2025 REASON FOR EXAM: NON DISPLACED LATERAL MALLEOLUS FX TECHNIQUE: Procedure Code: RADANK Modality: DX Procedure: ANKLE MIN 3 VIEWS Laterality: Left COMPARISON: Left ankle study dated 02/19/2025 FINDINGS: Bones: There is an obliquely oriented fracture through the distal fibula with displacement of the distal fragment laterally by a proximally 2 mm. No appreciable callus formation is noted. Remaining osseous structures are intact. Joints: Ankle mortise is intact. Ankle joints are unremarkable. Soft tissues: Soft tissue swelling of the ankle is noted. RAD/Ankle min 3 Views IMPRESSION: Obliquely oriented, minimally displaced fracture involving the distal left fibu la. Reading Location: [id number]
== END | disposition home or self-care (01) ==
LOC: MTRAD 16:44
PROVIDERS: PCP Family Medicine; Referring Provider Student in an Organized Health Care Education/Training Program; Visit Provider Student in an Organized Health Care Education/Training Program
DX: S82.65XD Nondisplaced fracture of lateral malleolus of left fibula, subsequent encounter for closed fracture with routine healing (principal)
CPT/HCPCS: 73610